=== PATIENT | female | born 1985 | race Caucasian/White ===

== ENCOUNTER 2016-07-05 14:16 | Emergency (ER) | END 2016-07-05 15:23 | disposition left against medical advice (07) | LOC: UCEAST 14:16 | DX: H92.09 Otalgia, unspecified ear (principal); Z53.21 Procedure and treatment not carried out due to patient leaving prior to being seen by health care provider ==

== ENCOUNTER 2016-07-05 17:06 | Emergency (ER) | END 2016-07-05 18:53 | disposition left against medical advice (07) | LOC: UCEAST 17:06 | DX: H92.09 Otalgia, unspecified ear (principal); Z53.21 Procedure and treatment not carried out due to patient leaving prior to being seen by health care provider ==

== ENCOUNTER 2017-01-20 14:45 | Emergency (ER) | payer OTHER ==
[2017-01-20 15:31] VITALS: BP 110/75
--- NOTE | 2017-01-20 17:07 | UC ---
General HPI - HPI Summary HPI Summary: Patient presents to the clinic today because she recently moved here from [place] and just got her insurance so she came to see if she could be evaluated from chronic sinus problems, and new onset floater in her right eye. She states in the past she has been on nasal sprays, antihistamines and never really had much relief. She also states she has been told she has a deviated septum and never saw an ENT. She complains of left sided sinus pain that has been chronic and unchanged today. She denies fever, chills, chest pain, congestion, cough, abdominal pain, nausea, vomiting or diarrhea. - History of Current Complaint Chief Complaint: UCRespiratory Stated Complaint: SINUS COMPLAINT Time Seen by Provider: 01/20/17 16:39 Hx Obtained From: Patient Hx Last Menstrual Period: 01/18/17 Onset/Duration: Gradual Onset, Lasting Weeks Timing: Intermittent Episodes Lasting: Onset Severity: Moderate Current Severity: Moderate Associated Signs & Symptoms: Positive: Other - sinus pain and pressure. - Allergy/Home Medications Allergies/Adverse Reactions: Allergies Allergy/AdvReac Type Severity Reaction Status Date / Time No Known Allergies Allergy Verified 01/20/17 15:31 PMH/Surg Hx/FS Hx/Imm Hx Previously Healthy: Yes - Surgical History Surgical History: Yes Surgery Procedure, Year, and Place: ovarian cyst removed - Family History Known Family History: Positive: None - Social History Occupation: Unemployed Lives: Alone Alcohol Use: Occasionally Substance Use Type: Marijuana Smoking Status (MU): Light Every Day Tobacco Smoker Amount Used/How Often: 2-3 cigs per week Review of Systems Constitutional: Negative Skin: Negative Eyes: Other - floaters ENT: Sinus Congestion, Sinus Pain/Tenderness Respiratory: Negative Cardiovascular: Negative Gastrointestinal: Negative Genitourinary: Negative Motor: Negative Neurovascular: Negative Musculoskeletal: Negative Neurological: Negative Psychological: Negative All Other Systems Reviewed And Are Negative: Yes Physical Exam Triage Information Reviewed: Yes Appearance: Well-Appearing Vital Signs: Initial Vital Signs Temp 99.8 F 01/20/17 15:26 Resp 20 01/20/17 15:26 BP 110/75 01/20/17 15:26 Pulse Ox 100 01/20/17 15:26 Vital Signs Reviewed: Yes Eye Exam: Normal ENT Exam: Normal Dental Exam: Normal Neck exam: Normal Neck: Positive: 1 Respiratory Exam: Normal Cardiovascular Exam: Normal Abdominal Exam: Normal Musculoskeletal Exam: Normal Neurological Exam: Normal Psychological Exam: Normal Skin Exam: Normal Course/Dx - Course Course Of Treatment: Patient was referred to PCP, ENT, and Opth for evaluation of her chronic conditions that could not be appropriately worked up here today, and I do not feel she required and emergent evaluation. - Differential Dx - Multi-Symptom Differential Diagnoses: Other - allergic rhinitis visual foater Provider Diagnoses: allergic rhinitis. visual floater Discharge - Discharge Plan Condition: Stable Disposition: HOME Prescriptions: Loratadine [Claritin 10 MG CAP] 10 mg PO DAILY #30 cap Patient Education Materials: Allergic Rhinitis (ED), Visual Floaters (ED) Referrals: [facility] [Outside] No Primary Care Phys,NOPCP [Primary Care Provider] - Bubba Rogers MD [Medical Doctor] - Bubba Roberson MD [Medical Doctor] -
== END 2017-01-20 17:19 | disposition home or self-care (01) ==
LOC: UCEAST 14:45
DX: H43.399 Other vitreous opacities, unspecified eye (principal); F17.210 Nicotine dependence, cigarettes, uncomplicated
CPT/HCPCS: 99212; G0463